=== PATIENT | female | born 1980 | race American Indian/Alaskan Native ===

== ENCOUNTER 2016-08-15 15:50 | Outpatient (CLI) | payer OTHER ==
--- NOTE | 2016-08-16 07:42 | Ultrasound Report ---
ULTRASOUND PELVIC COMPLETE ULTRASOUND TRANSVAGINAL HISTORY: Menorrhagia, excessive and frequent menstruation. TECHNIQUE: Transabdominal and transvaginal ultrasound with color doppler interrogation. Longitudinal and transverse real-time images of the pelvis demonstrate that the uterus and ovaries are present and in a normal location. They are of normal echogenicity, contour and size. A slightly complex 1.7 cm cyst in the left ovary is noted. The endometrium measures 11 mm. IMPRESSION: Slightly complex 1.7 cm left ovarian cyst. Consider followup in 6 weeks at a different stage of the menstrual cycle. Otherwise, unremarkable exam.
== END 2016-08-15 15:51 | disposition home or self-care (01) ==
LOC: US 15:50
PROVIDERS: ATTEND Internal Medicine
DX: N83.202 Unspecified ovarian cyst, left side (principal); N92.0 Excessive and frequent menstruation with regular cycle
CPT/HCPCS: 76830; 76856

== ENCOUNTER 2016-10-21 15:07 | Outpatient (CLI) | payer OTHER ==
--- NOTE | 2016-10-21 16:27 | Ultrasound Report ---
Pelvic ultrasound: Vaginal bleeding. Endovaginal and transabdominal imaging demonstrates an anteverted uterus measuring 4.4 x 6.2 x 9.5 cm. The myometrium is homogeneous except for a focal calcification. The endometrial thickness is 19 mm. No evidence of endometrial lesion appreciated. The right ovary measures 3 cm in maximum dimension with no echogenic findings. The left ovary measures 3.5 cm containing a very poorly visualized hypoechoic area measuring roughly a centimeter. No free fluid identified. Impression: No significant pathology identified.
--- NOTE | 2016-10-21 16:29 | Ultrasound Report ---
ULTRASOUND PELVIC COMPLETE ULTRASOUND TRANSVAGINAL HISTORY: Menorrhagia, excessive and frequent menstruation. TECHNIQUE: Transabdominal and transvaginal ultrasound with color doppler interrogation. Longitudinal and transverse real-time images of the pelvis demonstrate that the uterus and ovaries are present and in a normal location. They are of normal echogenicity, contour and size. A slightly complex 1.7 cm cyst in the left ovary is noted. The endometrium measures 11 mm. IMPRESSION: Slightly complex 1.7 cm left ovarian cyst. Consider followup in 6 weeks at a different stage of the menstrual cycle. Otherwise, unremarkable exam
== END 2016-10-21 15:08 | disposition home or self-care (01) ==
LOC: US 15:07
PROVIDERS: ATTEND Obstetrics & Gynecology
DX: N83.202 Unspecified ovarian cyst, left side (principal); N85.4 Malposition of uterus
CPT/HCPCS: 76830; 76856